=== PATIENT | female | born 1975 | race Two or more races ===

== ENCOUNTER 2016-11-17 15:40 | Emergency (ER) | payer SELFPAY | END 2016-11-17 16:42 | disposition left against medical advice (07) | LOC: ER 15:40 | DX: R51 Headache (principal); R42 Dizziness and giddiness; Z53.21 Procedure and treatment not carried out due to patient leaving prior to being seen by health care provider ==

== ENCOUNTER 2017-09-26 12:58 | Emergency (ER) | payer SELFPAY ==
[~2017-09-26] VITALS: Ht 172.7 cm; Wt 73.5 kg
[2017-09-26 13:55] LABS: BILIRUBIN,URINE NEGATIVE (NEG); GLUCOSE,URINE NEGATIVE (NEG); NITRITE,URINE NEGATIVE (NEG); PROTEIN,URINE NEGATIVE (NEG-TRACE); UROBILINOGEN,URINE 0.2 mg/dL (0.2 mg/dL)
[2017-09-26 14:22] LABS: BACTERIA,URINE 0 /HPF (0-FEW); RBC,URINE TNTC /HPF (0-2); SQUAMOUS EPITHELIAL CELL,UR MOD /LPF
[2017-09-26] MEDS ORDERED: IV NORMAL SALINE 1000ML BAG 1,000 ML IV SCH (14:41)
[2017-09-26] MEDS ORDERED: ONDANSETRON PF 4 MG/2 ML VIAL. IV ONE (14:45)
[2017-09-26] MEDS ORDERED: KETOROLAC 30 MG/ML INJ. IV ONE (14:45)
[2017-09-26 14:56] LABS: BASO # 0.1 x10^3/uL (0.0-0.2); BASO % 1 % (0-3); EOS % 5 % (0-3); HEMATOCRIT 39.1 % (36.0-47.0); HEMOGLOBIN 13.1 g/dL (12.0-15.5); LYMPH # 1.6 x10^3/uL (1.0-4.8); LYMPH % 20 % (24-48); MEAN CORPUSCULAR HEMOGLOBIN 29 pg (25-35); MEAN CORPUSCULAR HGB CONC 34 g/dL (31-37); MEAN CORPUSCULAR VOLUME 88 fL (79-100); MONO % 6 % (0-9); NEUT % 69 % (31-73); PLATELET COUNT 285 x10^3/uL (140-400); RED BLOOD COUNT 4.46 x10^6/uL (3.50-5.40); RED CELL DISTRIBUTION WIDTH 13.1 % (11.5-14.5); WHITE BLOOD COUNT 7.9 x10^3/uL (4.0-11.0)
[2017-09-26] MEDS: fentaNYL PF VIAL 100 MCG/2 ML VIAL IV PRN ×2 (14:57→16:27)
[2017-09-26 15:06] LABS: CALCIUM 8.9 mg/dL (8.5-10.1); CREATININE 0.7 mg/dL (0.6-1.0); GFR 93.2; POTASSIUM 3.6 mmol/L (3.5-5.1)
[2017-09-26 15:20] LABS: ALBUMIN/GLOBULIN RATIO 1.1 (1.0-1.7); TOTAL BILIRUBIN 0.4 mg/dL (0.2-1.0); TOTAL PROTEIN 7.5 g/dL (6.4-8.2)
--- NOTE | 2017-09-26 15:51 | RAD ---
CT abdomen and pelvis without contrast Indication: Left flank pain and left lower quadrant pain. Technique: CT abdomen and pelvis without IV contrast with multiplanar reformats. Comparison: None Findings: Bilateral breast augmentation. Heart is normal in size. No pericardial or pleural effusion. Mild subsegmental atelectasis in the lung bases. Liver is normal in morphology. Spleen is normal in size. No radiopaque gallstones. No pericholecystic fluid or gallbladder wall thickening. Pancreas is within normal limits. Adrenal gland show no nodularity. No nephrolithiasis. No hydronephrosis. No bowel obstruction. No bowel thickening. Appendix is visualized. Uterus is anteverted. Bladder is distended without radiopaque stones. No free pelvic fluid. No solid adnexal lesions. No retroperitoneal or pelvic adenopathy. No suspicious bony lesion. Impression: No acute findings. No nephrolithiasis or hydronephrosis. No diverticulitis. PQRS Compliance Statement: One or more of the following individualized dose reduction techniques were utilized for this examination: 1. Automated exposure control 2. Adjustment of the mA and/or kV according to patient size 3. Use of iterative reconstruction technique
--- NOTE | 2017-09-26 17:28 | RAD ---
Ultrasound pelvis complete HISTORY: Left pelvic pain Sonographic examination of the pelvis was performed by transabdominal technique and multiple static images were obtained. There is measures 7.3 x 4.5 x 5.7 cm. Endometrium appears normal measures 2.6 mm in thickness. The ovaries appear normal normal blood flow. The right ovary measures 2.7 x 1.6 x 1.7 cm. Left ovary measures 3.8 x 2.2 x 2.5 cm. IMPRESSION: Negative examination. Electronically signed by: Carroll Hurtado III, MD (09/26/2017 5:25 PM) [facility]
[2017-09-26 17:30] VITALS: BP 122/58
[2017-09-26] MEDS ORDERED: ONDA4TAB7 PO (18:05)
[2017-09-26] MEDS ORDERED: NAPR-683 PO (18:05)
--- NOTE | 2017-09-26 18:31 | ED.ADGEN ---
Past Medical History Past Medical History: No Pertinent History Past Surgical History: Appendectomy Alcohol Use: None Drug Use: None Adult General Chief Complaint Chief Complaint: ABDOMINAL PAIN HPI HPI Patient is a 41 year old woman, with no significant past no history, who presents to the emergency department with a complaint of left lower quadrant abdominal pain. Patient states that she was washing dishes when she had sudden onset of the pain, states located in the left lower quadrant with some radiation to left flank. She states she is currently on her menses, denies any pain with urination, any discharge or drainage from the vagina, any concerns for STI's, any injuries, states she is having some nausea, and it hurts so much that she feels short of breath. She denies any chest pain or shortness breath otherwise. Denies any fevers or chills, any other back or flank pain previously , any similar symptoms previously, any swelling extremities, any travel, any sick contacts or exposures, any diarrhea, any swelling of the extremities. She has not taken any medications prior to come to the ED. Her pain began approximately 2 hours prior to arrival. Review of Systems Review of Systems Constitutional: Denies fever or chills. [] Eyes: Denies change in visual acuity. [] HENT: Denies nasal congestion or sore throat. [] Respiratory: Denies cough or shortness of breath. [] Cardiovascular: Denies chest pain or edema. [] GI: Left lower quadrant abdominal pain, described as constant, cramping and sharp. : Denies dysuria. [] Musculoskeletal: Denies back pain or joint pain. [] Integument: Denies rash. [] Neurologic: Denies headache, focal weakness or sensory changes. [] Endocrine: Denies polyuria or polydipsia. [] Lymphatic: Denies swollen glands. [] Psychiatric: Denies depression or anxiety. [] Current Medications Current Medications Current Medications Medications (Trade) Dose Ordered Sig/Dominique Start Time Stop Time Status Last Admin Dose Admin Fentanyl Citrate (Fentanyl 2ml Vial) 25 mcg PRN Q15MIN PRN 09/26/17 14:45 09/26/17 18:13 DC 09/26/17 16:27 25 MCG Ketorolac Tromethamine (Toradol) 10 mg 1X ONCE 09/26/17 14:45 09/26/17 14:46 DC 09/26/17 14:56 10 MG Ondansetron HCl (Zofran) 4 mg 1X ONCE 09/26/17 14:45 09/26/17 14:46 DC 09/26/17 14:56 4 MG Sodium Chloride 1,000 ml @ 1,000 mls/hr Q1H 09/26/17 14:41 09/26/17 15:40 DC 09/26/17 14:55 1,000 MLS/HR Allergies Allergies Allergies Coded Allergies Type Severity Reaction Last Updated Verified No Known Drug Allergies 09/26/17 No Physical Exam Physical Exam Constitutional: Well developed, well nourished, no acute distress, non-toxic appearance. [] HENT: Normocephalic, atraumatic, bilateral external ears normal, oropharynx moist, no oral exudates, nose normal. [] Eyes: PERRLA, EOMI, conjunctiva normal, no discharge. [] Neck: Normal range of motion, no tenderness, supple, no stridor. [] Cardiovascular:Heart rate regular rhythm, no murmur, S1, S2, no rubs or gallops. [] Lungs & Thorax: Bilateral breath sounds clear to auscultation, no wheezing, rhonchi, rales. No chest wall crepitus or tenderness. [] Abdomen: Bowel sounds normal, soft, left lower quadrant tenderness, no rebound, rigidity, no guarding, no masses, no pulsatile masses. [] Skin: Warm, dry, no erythema, no rash. [] Back: No tenderness, mild left CVA tenderness. [] Extremities: No tenderness, no cyanosis, no clubbing, ROM intact, no edema. [] Negative Homans sign. Neurologic: Alert and oriented X 3, normal motor function, normal sensory function, no focal deficits noted. [] Psychologic: Affect normal, judgement normal, mood normal. Pelvic exam: Patient is currently on her menses, external examination is unremarkable, bimanual examination reveals a closed os, with out any right- sided adnexal tenderness or masses, patient with mild left-sided adnexal tenderness, no masses palpated. Patient noted to have moderate amount of dark blood in vault, on speculum examination, normal-appearing cervix visualized, no bright red blood or active bleeding identified, specimens taken without issue. Current Patient Data Vital Signs Vital Signs Date Time Temp Pulse Resp B/P (MAP) Pulse Ox O2 Delivery O2 Flow Rate FiO2 09/26/17 17:30 68 18 122/58 (79) 98 09/26/17 17:10 Room Air 09/26/17 13:20 98.0 98.0 Lab Values Laboratory Tests Test 09/26/17 13:20 09/26/17 13:55 Urine Collection Type Unknown Urine Color Yellow Urine Clarity Clear Urine pH 7.0 Urine Specific [place] 1.025 Urine Protein Negative mg/dL (NEG-TRACE) Urine Glucose (UA) Negative mg/dL (NEG) Urine Ketones (Stick) Negative mg/dL (NEG) Urine Blood Large (NEG) Urine Nitrite Negative (NEG) Urine Bilirubin Negative (NEG) Urine Urobilinogen Dipstick 0.2 mg/dL (0.2 mg/dL) Urine Leukocyte Esterase Trace (NEG) Urine RBC Tntc /HPF (0-2) Urine WBC 1-4 /HPF (0-4) Urine Squamous Epithelial Cells Mod /LPF Urine Bacteria 0 /HPF (0-FEW) Urine Mucus Mod /LPF White Blood Count 7.9 x10^3/uL (4.0-11.0) Red Blood Count 4.46 x10^6/uL (3.50-5.40) Hemoglobin 13.1 g/dL (12.0-15.5) Hematocrit 39.1 % (36.0-47.0) Mean Corpuscular Volume 88 fL (79-100) Mean Corpuscular Hemoglobin 29 pg (25-35) Mean Corpuscular Hemoglobin Concent 34 g/dL (31-37) Red Cell Distribution Width 13.1 % (11.5-14.5) Platelet Count 285 x10^3/uL (140-400) Neutrophils (%) (Auto) 69 % (31-73) Lymphocytes (%) (Auto) 20 % (24-48) L Monocytes (%) (Auto) 6 % (0-9) Eosinophils (%) (Auto) 5 % (0-3) H Basophils (%) (Auto) 1 % (0-3) Neutrophils # (Auto) 5.4 x10^3uL (1.8-7.7) Lymphocytes # (Auto) 1.6 x10^3/uL (1.0-4.8) Monocytes # (Auto) 0.5 x10^3/uL (0.0-1.1) Eosinophils # (Auto) 0.4 x10^3/uL (0.0-0.7) Basophils # (Auto) 0.1 x10^3/uL (0.0-0.2) Sodium Level 140 mmol/L (136-145) Potassium Level 3.6 mmol/L (3.5-5.1) Chloride Level 105 mmol/L (98-107) Carbon Dioxide Level 27 mmol/L (21-32) Anion Gap 8 (6-14) Blood Urea Nitrogen 11 mg/dL (7-20) Creatinine 0.7 mg/dL (0.6-1.0) Estimated GFR (Cockcroft-Gault) 93.2 BUN/Creatinine Ratio 16 (6-20) Glucose Level 92 mg/dL (70-99) Calcium Level 8.9 mg/dL (8.5-10.1) Total Bilirubin 0.4 mg/dL (0.2-1.0) Aspartate Amino Transferase (AST) 15 U/L (15-37) Alanine Aminotransferase (ALT) 17 U/L (14-59) Alkaline Phosphatase 59 U/L (46-116) Total Protein 7.5 g/dL (6.4-8.2) Albumin 4.0 g/dL (3.4-5.0) Albumin/Globulin Ratio 1.1 (1.0-1.7) Lipase 145 U/L (73-393) Laboratory Tests 09/26/17 13:55 Laboratory Tests 09/26/17 13:55 Microbiology 09/26/17 Wet Prep - Final, Complete EKG EKG Not indicated.[] Radiology/Procedures Radiology/Procedures [][facility] [address] [place] [address] IMAGING REPORT Signed PATIENT: LENIN PAUL ACCOUNT: [id number] : 1975 LOCATION: ER AGE: 41 SEX: F EXAM STATUS: REG ER ORD. PHYSICIAN: CAROL GHOSH DO REASON: L pelvic pain PROCEDURE: PELVIS COMPLETE Ultrasound pelvis complete HISTORY: Left pelvic pain Sonographic examination of the pelvis was performed by transabdominal technique and multiple static images were obtained. There is measures 7.3 x 4.5 x 5.7 cm. Endometrium appears normal measures 2.6 mm in thickness. The ovaries appear normal normal blood flow. The right ovary measures 2.7 x 1.6 x 1.7 cm. Left ovary measures 3.8 x 2.2 x 2.5 cm. IMPRESSION: Negative examination. Electronically signed by: Darius Almeida III, MD (09/26/2017 5:25 PM) [facility] DICTATED and SIGNED BY: DARIUS ALMEIDA III, MD DATE: 09/26/17 884 CC: CAROL GHOSH DO; NO PCP ~ Impressions: [facility] [address] [place] [address] IMAGING REPORT Signed PATIENT: LENIN PAUL ACCOUNT: [id number] : 1975 LOCATION: ER AGE: 41 SEX: F EXAM STATUS: REG ER ORD. PHYSICIAN: CAROL GHOSH DO REASON: L flank/LLQ pain PROCEDURE: CT ABDOMEN PELVIS WO CONTRAST CT abdomen and pelvis without contrast Indication: Left flank pain and left lower quadrant pain. Technique: CT abdomen and pelvis without IV contrast with multiplanar reformats. Comparison: None Findings: Bilateral breast augmentation. Heart is normal in size. No pericardial or pleural effusion. Mild subsegmental atelectasis in the lung bases. Liver is normal in morphology. Spleen is normal in size. No radiopaque gallstones. No pericholecystic fluid or gallbladder wall thickening. Pancreas is within normal limits. Adrenal gland show no nodularity. No nephrolithiasis. No hydronephrosis. No bowel obstruction. No bowel thickening. Appendix is visualized. Uterus is anteverted. Bladder is distended without radiopaque stones. No free pelvic fluid. No solid adnexal lesions. No retroperitoneal or pelvic adenopathy. No suspicious bony lesion. Impression: No acute findings. No nephrolithiasis or hydronephrosis. No diverticulitis. PQRS Compliance Statement: One or more of the following individualized dose reduction techniques were utilized for this examination: 1. Automated exposure control 2. Adjustment of the mA and/or kV according to patient size 3. Use of iterative reconstruction technique DICTATED and SIGNED BY: MARGARITA LEE DO DATE: 09/26/17 1543 CC: CAROL GHOSH DO; NO PCP ~ Course & Med Decision Making Course & Med Decision Making Pertinent Labs and Imaging studies reviewed. (See chart for details) Due to patient's degree of pain, and concern for possible renal calculi, IV was placed, patient received IV fluids, antiemetics, pain medication, and after discussion at bedside risk versus benefits, CT of the abdomen and pelvis without contrast. Did not reveal evidence of any concerning findings, patient patient's pelvic exam finds, ultrasound was then ordered to rule out any pelvic pathology which was also unremarkable. Patient is resting more comfortably at this time and receiving analgesia as stated, without any concerning findings identified during her laboratory studies or imaging. I discuss these findings with patient, she states that she is feeling better and is agreeable plan to be discharged home, she was: Clear and detailed return instructions which she voiced understanding, states that she will return with concerning symptoms, and is agreeable to following up with a primary care provider and [facility] for additional evaluation as needed. Given contact information for Dr. Valentino of [facility], and a list of primary care providers. Discharged home in improved condition , with a prescription for Zofran, naproxen, clear and detailed return instructions, precautions, and plan as above. Robbie Disclaimer Robbie Disclaimer This electronic medical record was generated, in whole or in part, using a voice recognition dictation system. Departure Impression: Primary Impression: Abdominal pain Disposition: HOME, SELF-CARE Condition: IMPROVED Scripts Ondansetron Hcl (ZOFRAN) 4 Mg Tablet 1 TAB PO PRN Q8HRS Y for NAUSEA, #12 TAB Prov: CAROL GHOSH DO 09/26/17 Naproxen (NAPROSYN) 500 Mg Tablet 500 MG PO PRN BID Y for PAIN, #10 TAB Prov: CAROL GHOSH DO 09/26/17 CAROL GHOSH DO Sep 26, 2017 18:31
== END 2017-09-26 18:04 | disposition home or self-care (01) ==
LOC: ER 12:58
DX: R10.32 Left lower quadrant pain (principal); R11.0 Nausea; Z90.49 Acquired absence of other specified parts of digestive tract
CPT/HCPCS: 36415; 74176; 76856; 80053; 81001; 81025; 83690; 85025; 87086; 87491; 87591; 96361; 96374; 96375; 96376; 99285; J1885; J2405; J3010; J7030; Q0111

== ENCOUNTER → 2018-05-22 | Outpatient (CLI) | payer OTHER | END | disposition home or self-care (01) | LOC: RAD 09:59 | DX: M25.531 Pain in right wrist (principal); M79.641 Pain in right hand | CPT/HCPCS: 73100; 73120 ==